=== PATIENT | male | born 1960 | race Caucasian/White ===

== ENCOUNTER 2022-09-18 11:57 | Observation (INO) ==
[2022-09-18] MEDS ORDERED: SODIUM CHLORIDE 0.9% 500 ML IV STA (11:59)
--- NOTE | 2022-09-18 12:12 | Emergency Department Note ---
Impression & Plan DKA (diabetic ketoacidosis) ADMIT ED Provider Note HPI: The patient is a 62-year-old male who presents emergency department chief complaint of hyperglycemia on his outpatient lab work today. Patient states he is currently homeless and living in the homeless retirement out of the cold. He states he has been there for about a year. Patient states that he stopped taking all of his medications several weeks ago because he was concerned that they might be tripping a positive screen on his urine drug test that he is taking because he is currently on probation. This included his metformin that he was on for type 2 diabetes. Patient denies any recent vomiting. He states over the past several days he has developed a diffuse maculopapular rash, worst on his back and in his groin. ROS: - Per HPI *Outpatient medications and allergy history reviewed. *Pertinent external medical records reviewed. PE: General: Alert HEENT: Normocephalic, trachea midline Eyes: Extraocular eye movement is intact, no scleral erythema Pulmonary: Clear to auscultation bilaterally, no wheezing Cardio: Regular rate and rhythm GI: Abdomen is soft to palpation : No suprapubic tenderness MSK: No evidence of trauma or malformation of the extremities, no edema Skin: There is a papular appearing rash to the lower back, buttocks, and bilateral lower extremities to a lesser degree without surrounding erythema, no vesicle formation, no blister formation or skin peeling is noted Neuro: Alert, no focal deficits Psychiatric: Cooperative night monitor: (As interpreted by myself): - An order was placed for continuous cardiac monitoring - Patient was noted to be in sinus rhythm with a rate of 75 EKG: (As interpreted by myself): Rate: 81 Rhythm: Normal sinus rhythm Intervals: Within normal limits ST changes: No ST elevation Time: 1247 Interventions provided in ED: -IV fluid bolus, IV insulin drip Differential Diagnosis: Diabetic ketoacidosis, HHNK, cellulitis, fungal infection/rash, bedbugs, eruptive xanthomatosis, amongst other potential pathologies. Medical Decision Making: The patient is a 62-year-old gentleman who presented to the emergency department with high blood sugar noted on his outpatient lab work today. On arrival here to the ED the patient appears in no acute distress, he is hemodynamically stable, does admit to not taking any of his medications over the past several weeks secondary to concerns about drug testing through his probation program. IVs established lab work obtained, patient was maintained on monitoring and evaluation advisor, lab work does show evidence of DKA, serum bicarbonate level is reduced at 13, glucose is elevated 466, patient has a slight anion gap. CBC does not show any evidence of leukocytosis, hemoglobin is stable at 13.9, platelet count is within normal limits at 229. Urinalysis was obtained and shows evidence of ketonuria without infection. Regards to the patient's rash, I did contact his PCP today, Yusef Chirinos, case was discussed and the patient did have a biopsy done earlier today in the resident clinic of one of the papules on his lower back. Dr. Chirinos recommended Lipid panel be obtained as patient is currently under consideration for eruptive xanthomatosis as the possible source of his rash. Lipid panel was ordered and the sample was too lipophilic to run, therefore I think this is a possibility. Patient otherwise appears nontoxic and is afebrile. Rash does not appear consistent with parasitic infection or bedbugs. Patient has no leukocytosis, I do not feel that this is an infectious rash at this time. I discussed all of the above findings with the patient, he is in agreement for admission, potassium is within normal limits and therefore insulin drip without bolus was ordered. Case was discussed with the on-call hospitalist, Dr. Lara, and the patient was placed for admission in stable condition peer Consultants: -Hospitalist, Dr. Lara -PCP, Dr. Chirinos Disposition discussion held by myself with: Patient * CRITICAL CARE TIME: ( 50 ) minutes -Stabilization of DKA requiring IV fluid resuscitation and initiation of insulin drip, time spent at the bedside, discussion with other healthcare providers and arrangement of admission Diagnosis: 1. Diabetic ketoacidosis, acute 2. Papular rash, acute, nonspecific 3. Ketonuria, acute 4. Noncompliance with prescription medications Disposition: Admission Pedro Pablo Mcdowell DO Emergency Medicine Past Med/Surg History Medical History H/O: HTN (hypertension) HLD (hyperlipidemia) Surgical History No pertinent past surgical history Social History Smoking Status: Current every day smoker Tobacco Type: Cigarettes Hx Alcohol Use: No Hx Substance Use: Yes Preferred Language: Faroese Feels Safe at Home: Yes Allergies Allergies Allergy/AdvReac Type Severity Reaction Status Date / Time N Allergy Unknown Uncoded 05/29/02 14:49 NONE Allergy Unknown Uncoded 05/29/02 14:49 SULFA Allergy Unknown Uncoded 05/29/02 14:49 Home Meds Home Medications Medication Instructions Recorded Confirmed None (Patient States No Home Meds) ##0 05/27/08 atorvastatin 40 mg tablet 40 mg PO UNKNOWN 12/13/21 12/13/21 budesonide-formoterol HFA 80 80 inh inhalation UNKNOWN 12/13/21 12/13/21 mcg-4.5 mcg/actuation aerosol inhaler (Symbicort) buspirone 10 mg tablet 10 mg PO UNKNOWN 12/13/21 12/13/21 lisinopril 10 mg tablet 10 mg PO UNKNOWN 12/13/21 12/13/21 Previous Rx's Medication Instructions Recorded OXYCODONE/ACETAMINOPHEN 5MG/325MG 1 - 2 tabs PO Q4-6HR PRN ##15 05/27/08 (PERCOCET 5MG/325MG) lidocaine 5 % topical patch 1 patch topical DAILY PRN pain #15 02/14/22 ea Results & Data (ED) Vital Signs Vital Signs - 24 hr 09/18/22 12:02 09/18/22 12:57 09/18/22 14:02 Temperature 36.4 C L Temperature Source Temporal Artery Scan Pulse Rate 91 H Pulse Rate [Apical] 73 Respiratory Rate 18 16 Respiratory Effort / Characteristics Non-Labored Respiratory Depth Normal Blood Pressure 127/78 Blood Pressure [Left Arm] 120/74 Blood Pressure Mean 94 Blood Pressure Mean [Left Arm] 89 Blood Pressure Position Sitting Pulse Oximetry 95 97 Oxygen Delivery Method Room Air Room Air Room Air Sepsis Recent Fever Within 48 Hours No Sepsis New/Unexplained Change in Mental Status No Sepsis Action Taken by Nursing No Action Required 09/18/22 14:08 Temperature Temperature Source Pulse Rate 72 Pulse Rate [Apical] Respiratory Rate Respiratory Effort / Characteristics Respiratory Depth Blood Pressure Blood Pressure [Left Arm] Blood Pressure Mean Blood Pressure Mean [Left Arm] Blood Pressure Position Pulse Oximetry Oxygen Delivery Method Sepsis Recent Fever Within 48 Hours Sepsis New/Unexplained Change in Mental Status Sepsis Action Taken by Nursing Laboratory Data 09/18/22 13:03 09/18/22 13:03 Lab Results 09/18/22 09/18/22 09/18/22 Range/Units 13:01 13:03 13:03 WBC 8.66 (4.8-10.8) K/ul RBC 4.58 L (4.70-6.10) M/uL Hgb 13.9 L (14.0-18.0) g/dl Hct 39.5 L (42.0-52.0) % MCV 86.2 (80.0-100.0) fL MCH 32.6 (25.0-34.0) pg MCHC 37.6 H (32.0-36.0) g/dL RDW Std Deviation 39.8 (36.4-46.3) fL RDW Coeff of Tamera 12.8 (11.5-14.5) % Plt Count 229 (130-400) K/uL MPV 11.2 (9.4-12.4) fL Immature Gran % (Auto) 0.6 % Neut % (Auto) 64.5 % Lymph % (Auto) 27.7 % [place] % (Auto) 5.2 % Eos % (Auto) 1.4 % Baso % (Auto) 0.6 % Neut # (Auto) 5.59 (1.40-6.50) K/uL Lymph # (Auto) 2.40 (1.2-3.4) K/uL [place] # (Auto) 0.45 (0.11-0.59) K/uL Eos # (Auto) 0.12 (0-0.50) K/uL Baso # (Auto) 0.05 (0-0.2) K/uL Immature Gran # (Auto) 0.05 (0.01-0.20) K/uL PT 9.7 (9.0-12.0) Seconds INR 0.9 (0.9-1.1) VBG pH (7.36-7.41) VBG pCO2 (38-50) mmHg VBG pO2 mmHg VBG HCO3 mmol/L VBG O2 Saturation % VBG Base Excess mEq/L Sodium (136-145) mmol/L Potassium (3.5-5.1) mmol/L Chloride (98-107) mmol/L Carbon Dioxide (21-32) mmol/L Anion Gap (3-11) BUN (6-23) mg/dl Creatinine (0.6-1.4) mg/dl Est Cr Clr Drug Dosing ml/min Est GFR ( Amer) ml/min Est GFR (Non-Af Amer) ml/min BUN/Creatinine Ratio Glucose (70-99(Fasting)) mg/dl POC Glucose 508 H* (70-99) mg/dl Calcium (8.6-10.3) mg/dl Total Bilirubin (0.2-1.0) mg/dl AST (13-39) U/L ALT (7-52) U/L Alkaline Phosphatase (34-104) U/L Troponin I High Sens (0-20) pg/ml Albumin (3.4-5.0) gm/dl Globulin Albumin/Globulin Ratio Triglycerides Cholesterol LDL Cholesterol, Calc VLDL Cholesterol, Calc HDL Cholesterol Cholesterol/HDL Ratio Lipase (11-82) U/L 09/18/22 09/18/22 09/18/22 Range/Units 13:03 13:03 13:03 WBC (4.8-10.8) K/ul RBC (4.70-6.10) M/uL Hgb (14.0-18.0) g/dl Hct (42.0-52.0) % MCV (80.0-100.0) fL MCH (25.0-34.0) pg MCHC (32.0-36.0) g/dL RDW Std Deviation (36.4-46.3) fL RDW Coeff of [place] (11.5-14.5) % Plt Count (130-400) K/uL MPV (9.4-12.4) fL Immature Gran % (Auto) % Neut % (Auto) % Lymph % (Auto) % [place] % (Auto) % Eos % (Auto) % Baso % (Auto) % Neut # (Auto) (1.40-6.50) K/uL Lymph # (Auto) (1.2-3.4) K/uL [place] # (Auto) (0.11-0.59) K/uL Eos # (Auto) (0-0.50) K/uL Baso # (Auto) (0-0.2) K/uL Immature Gran # (Auto) (0.01-0.20) K/uL PT (9.0-12.0) Seconds INR (0.9-1.1) VBG pH 7.39 (7.36-7.41) VBG pCO2 37 L (38-50) mmHg VBG pO2 53 mmHg VBG HCO3 22 mmol/L VBG O2 Saturation 90.1 % VBG Base Excess -2.2 mEq/L Sodium 129 L (136-145) mmol/L Potassium 4.0 (3.5-5.1) mmol/L Chloride 97 L (98-107) mmol/L Carbon Dioxide 13 L (21-32) mmol/L Anion Gap 12 H (3-11) BUN 16 (6-23) mg/dl Creatinine 0.26 L D (0.6-1.4) mg/dl Est Cr Clr Drug Dosing 363.7 ml/min Est GFR ( Amer) > 150.0 ml/min Est GFR (Non-Af Amer) > 150.0 ml/min BUN/Creatinine Ratio TNP Glucose 466 H* (70-99(Fasting)) mg/dl POC Glucose (70-99) mg/dl Calcium 9.4 (8.6-10.3) mg/dl Total Bilirubin 0.5 (0.2-1.0) mg/dl AST < 3 L (13-39) U/L ALT 18 (7-52) U/L Alkaline Phosphatase 138 H (34-104) U/L Troponin I High Sens 6.4 (0-20) pg/ml Albumin 3.9 (3.4-5.0) gm/dl Globulin TNP Albumin/Globulin Ratio TNP Triglycerides TNP Cholesterol TNP LDL Cholesterol, Calc TNP VLDL Cholesterol, Calc TNP HDL Cholesterol TNP Cholesterol/HDL Ratio TNP Lipase 55 (11-82) U/L Administered Medications Discontinued Medications Sodium Chloride (Nss) 500 mls @ 999 mls/hr IV .Q31M STA Stop: 09/18/22 12:29 Last Infusion: 09/18/22 14:54 Dose: 0 mls/hr Documented By: Admin: 09/18/22 13:59 Dose: 999 mls/hr Documented By: ML Discharge Plan Visit Data Chief Complaint: Hyperglycemia Stated Complaint: HYPERGLYCEMIC, BLOOD GLUCOSE 600 ED Provider: Pedro Pablo Mcdowell Discharge Problem: DKA (diabetic ketoacidosis) Forms Stand Alone Forms: My [facility] Prescriptions Prescriptions: No Action None (Patient States No Home Meds) . Qty: 0 OXYCODONE/ACETAMINOPHEN 5MG/325MG (PERCOCET 5MG/325MG) tablet 1 - 2 tabs PO Q4-6HR PRN Qty: 15 0RF Rx Instructions: PAIN atorvastatin 40 mg tablet 40 mg PO UNKNOWN buspirone 10 mg tablet 10 mg PO UNKNOWN lisinopril 10 mg tablet 10 mg PO UNKNOWN budesonide-formoterol [Symbicort] 80-4.5 mcg/actuation HFA aerosol inhaler 80 inh INHALATION UNKNOWN lidocaine 5 % adhesive patch,medicated 1 patch TOP DAILY PRN (Reason: pain) Qty: 15 0RF Rx Instructions: leave on most painful area for 12 hrs Referrals Referrals: Yusef Chirinos DO [Primary Care Provider] -
[2022-09-18 13:40] LABS: Base Excess VBG -2.2 mEq/L; HCO3 VBG 22 mmol/L; Oxygen Saturation VBG 90.1 %; PCO2 VBG 37 mmHg (38-50); PO2 VBG 53 mmHg; pH VBG 7.39 (7.36-7.41)
[2022-09-18 14:13] LABS: INR 0.9 (0.9-1.1); Prothrombin Time 9.7 Seconds (9.0-12.0)
[2022-09-18 14:47] LABS: Alanine Aminotransferase 18 U/L (7-52); Albumin Level 3.9 gm/dl (3.4-5.0); Alkaline Phosphatase 138 U/L (34-104); Anion Gap 12 (3-11); Aspartate Aminotransferase < 3 U/L (13-39); Bilirubin,Total 0.5 mg/dl (0.2-1.0); Blood Urea Nitrogen 16 mg/dl (6-23); Calcium 9.4 mg/dl (8.6-10.3); Chloride 97 mmol/L (98-107); Glucose 466 mg/dl (70-99(Fasting)); Lipase 55 U/L (11-82); Sodium 129 mmol/L (136-145); Troponin I High Sensitivity 6.4 pg/ml (0-20)
[2022-09-18 14:50] LABS: Hematocrit (blood only) 39.5 % (42.0-52.0); Hemoglobin 13.9 g/dl (14.0-18.0); Mean Corpuscular Hemoglobin 32.6 pg (25.0-34.0); Mean Corpuscular Hgb Conc 37.6 g/dL (32.0-36.0); Mean Corpuscular Volume 86.2 fL (80.0-100.0); Mean Platelet Volume 11.2 fL (9.4-12.4); Platelet Count 229 K/uL (130-400); RDW Coefficient of Variation 12.8 % (11.5-14.5); RDW Standard Deviation 39.8 fL (36.4-46.3); Red Blood Count 4.58 M/uL (4.70-6.10); White Blood Count 8.66 K/ul (4.8-10.8)
[2022-09-18] MEDS ORDERED: DEXTROSE 50% 50 ML SYRINGE IV PRN (14:54)
[2022-09-18] MEDS ORDERED: STAT INSULIN DRIP STA (14:54)
[2022-09-18] MEDS ORDERED: GLUCAGON FOR INJ 1 MG VIAL SQ PRN (14:54)
[2022-09-18] MEDS ORDERED: GLUCOSE 40% GEL 15 GM TUBE PO PRN (14:54)
[2022-09-18] MEDS ORDERED: CARBOHYDRATES FOR HYPOGLYCEMIA PO PRN (14:54)
[2022-09-18] MEDS ORDERED: GLUCOSE 10 TAB/TUBE PO PRN (14:54)
[2022-09-18 14:57] LABS: Creatinine Clr Calc Pharmacy 363.7 ml/min; Est GFR (African American) > 150.0 ml/min; Est GFR (Non-African American) > 150.0 ml/min
[2022-09-18 14:58] LABS: Carbon Dioxide 13 mmol/L (21-32)
[2022-09-18] MEDS ORDERED: INSULIN REGULAR 250 UNITS in SODIUM CHLORIDE 0.9% 247.5 ML IV SCH (15:00)
[2022-09-18 15:17] LABS: Basophils # (auto) 0.05 K/uL (0-0.2); Basophils % (auto) 0.6 %; Eosinophils # (auto) 0.12 K/uL (0-0.50); Eosinophils % (auto) 1.4 %; Immature Granulocytes # (auto) 0.05 K/uL (0.01-0.20); Immature Granulocytes % (auto) 0.6 %; Lymphocytes % (auto) 27.7 %; Monocytes # (auto) 0.45 K/uL (0.11-0.59); Monocytes % (auto) 5.2 %; Neutrophils # (auto) 5.59 K/uL (1.40-6.50); Neutrophils % (auto) 64.5 %
[2022-09-18 15:23] LABS: Appearance Urine Clear (Clear); Bilirubin Urine Negative (Negative); Blood Urine Negative (Negative); Color Urine Yellow; Glucose Urine UA 3+ (Negative); Ketones Urine 3+ (Negative); Leukocyte Esterase Urine Negative (Negative); Nitrite Urine Negative (Negative); Protein Urine Negative (Negative); Urobilinogen Urine Negative (Negative)
--- NOTE | 2022-09-18 15:56 | History & Physical Report ---
Date of Service September 18, 2022 Assessment & Plan (1) Hyperglycemia: Plan: 62 y/o M w/ PmHx anxiety, tobacco use disorder at 1 pack per day, COPD, HLD, HTN, prediabetes, illiteracy admitted for hyperglycemia with anion gap. Hyperglycemia: -Glucose this AM 550, anion gap 19. -Repeat glucose in ED 466, AG 12. -Na 128 however 135-138 when corrected for glucose. -Cannot find record of A1c in [facility], will obtain A1c in the AM. -Started on insulin drip in the ED along with 1L NSS bolus. -Will place on plasmalyte 250ml/hr due to dehydrated state. -Anion gap closed at 12, patient hungry and without nausea, will place on clear liquid diet. -Can transition in AM. -Follow up BMP at 10PM, followed by AM BMP. -Replete electrolytes as needed. Full body rash eruption/hyperlipidemia: -Present past few weeks, biopsy taken today in clinic. -Lipid profile ordered could not be read due to too many lipids. -Non irritating, no sexual contacts recently, HCV and HIV still pending. 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 IV insulin will help with hyperlipidemia. -Will replete fluids and obtain repeat lipid profile in the morning. -Continue home atorvastatin 40mg for now if patient will allow, can increase tomorrow if able to get read. HTN: -Continue home irbesartan if patient will allow. COPD: -Continue home albuterol and symbicort. Tobacco user: -1ppd at baseline use. -Will put on for nicotine patch 21mg daily. Anxiety: -Continue home buspirone and bupropion. F/E/N/GI: Clear liquid, T2DM carb consistent. DVT Prophylaxis: SCDs knee. Code status: Full code. Dispo: PCU. (2) Hypertension: (3) COPD (chronic obstructive pulmonary disease): (4) Tobacco use disorder: (5) Anxiety: History of Present Illness Chief Complaint: Hyperglycemia Primary Care Provider: DO Farhat Crain is a 62 year old male with PmHx anxiety, tobacco use disorder at 1 pack per day, COPD, HLD, HTN, prediabetes, illiteracy coming in for elevated blood glucose on lab earlier today. Patient states that over the past 3 weeks he developed a papular rash across his whole body. He was seen in the [facility] clinic on 09/14 for the rash and was given 7 days of doxycycline. He states he stopped taking all his medications 3 weeks ago due to concern for false positives showing up on urine drug screen for parol. Dr. Chirinos had gone over with him the importance of taking medications for his chronic conditions in the clinic settings to no avail. He was seen again in the clinic this morning by Dr. Brar for a biopsy of one of his lesions. He states he had blood work ordered that showed a high glucose and was told to come to the ED for management. He denies any nausea, vomiting, fevers, chills, shortness of breath, chest pain, diarrhea, constipation. He endorses having increased thirst and increased urination, urinating 10x per day and 2-4x per night. He also endorses increased fatigue and generalized weakness. Initial blood work showed unremarkable CBC, Glucose 550, Na 128, K 4.6, AG 19. Repeat in the ED showed Na 129, K 4.0, AG 12, Creat 0.26, glucose 466, lipid panel unable to read due to too many lipids, lipase 55, U/A Ketones and glucose, covid negative. Allergies Allergy/AdvReac Type Severity Reaction Status Date / Time Sulfa (Sulfonamide Allergy Severe Anaphylaxis Verified 09/18/22 15:48 Antibiotics) Home Medications Medication Instructions Recorded Confirmed Type atorvastatin 40 mg tablet 40 mg PO DAILY 12/13/21 09/18/22 History budesonide-formoterol HFA 80 80 inh inhalation DIRECTED 12/13/21 09/18/22 History mcg-4.5 mcg/actuation aerosol inhaler (Symbicort) buspirone 10 mg tablet 10 mg PO BID 12/13/21 09/18/22 History lisinopril 10 mg tablet 10 mg PO DAILY 12/13/21 09/18/22 History albuterol sulfate 90 mcg/actuation 1 - 2 puff inhalation DIRECTED 09/18/22 09/18/22 History aerosol inhaler PRN Shortness Of Breath Or Wheezing bupropion HCl 150 mg 24 hr tablet, 150 mg PO DAILY 09/18/22 09/18/22 History extended release diphenhydramine HCl 25 mg capsule 25 mg PO DIRECTED PRN Itching 09/18/22 09/18/22 History (Benadryl) doxycycline hyclate 100 mg tablet 100 mg PO BID 09/18/22 09/18/22 History irbesartan 75 mg tablet 75 mg PO DAILY 09/18/22 09/18/22 History Past Med/Surg History Medical History H/O: HTN (hypertension) HLD (hyperlipidemia) Surgical History No pertinent past surgical history Social History Smoking Status: Current every day smoker Tobacco Type: Cigarettes Cigarettes Per Day: 1 pack; Second Hand Exposure: Yes; Do You Dip or Chew Tobacco: No; Tobacco Cessation Education Requested by Patient: No Hx Alcohol Use: No Hx Substance Use: Yes (has a marijuana card) Last Used Substance: Unknown Preferred Language: Bahamian Communication Ability: Effective Communication Ability Comment: pt has hx of illiteracy and states he can only read and write a little [employer] Work[employer] Required: No Beliefs That Will Affect Care: None Current Living Situation: Other Current Living Situation Comment: Out of the cold x1.5 years Other Information That Helps Us Care for You: No Feels Safe at Home: No Is there a partner from a previous relationship who is making you feel unsafe now?: No Any Concerns about Your Family Situation: No Would You Like to Speak to Someone About Your Situation: No (pt does not feel safe, states he is an adult and doesnt want to talk 2 rep) Assistive Devices: None Review of Systems Review of Systems: As per HPI. Physical Exam Constitutional: WD/WN, vitals as above Not in any acute distress. Eyes: PERRL, conjunctivae normal, anicteric sclerae Respiratory: normal respiratory effort, lungs clear to auscultation Cardiovascular: RRR, no murmur, no edema Gastrointestinal (Abdomen): normal bowel sounds, soft, nontender, no hepat osplenomegaly Skin: Scattered purpura across patient's legs, groin, buttocks, torso, back, upper extremities, face. Most pronounced across patient's buttocks and below. Psychiatric: A+Ox3, euthymic affect Results & Data Results & Data Vital Signs (Past 12 Hours) Vital Signs Temp Pulse Pulse Resp BP BP Pulse Ox 09/18/22 14:08 72 09/18/22 14:02 73 16 120/74 97 09/18/22 12:57 09/18/22 12:02 36.4 C L 91 H 18 127/78 95 O2 Del Method 09/18/22 14:08 09/18/22 14:02 Room Air 09/18/22 12:57 Room Air 09/18/22 12:02 Room Air Supervising Physician Co-Signing Physician Notes I personally examined the patient and verified all barclay points of history and exam, discussed case, and agree with decision making with Dr Juan Sotomayor. Sugars high. Stopped meds a few weeks ago because he was worried about how they may interface with a drug test. Vitals noted, in general he is awake and alert pleasant no distress. HEENT normocephalic atraumatic mucous membranes moist. 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 CBC, basic metabolic panel noted. Lipids not able to be run due to lipemia. Hyperglycemic dehydration/uncontrolled diabetesfluids, insulin, education, time. 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 Otherwise as above Resident Activity Tracking Resident Involvement: Resident Care Provided Care Provided: Adult Hospital Medicine
--- NOTE | 2022-09-18 17:16 | Billing Data ---
Date of Service September 18, 2022 Coding Level of Care Code 76887 INT INP/OBS CARE
[2022-09-18] MEDS ORDERED: LACTATED RINGER'S 1,000 ML IV ONE (17:28)
[2022-09-18] MEDS ORDERED: NICOTINE 21 MG/24 HR TDSY TD ONE (18:02)
[2022-09-18] MEDS ORDERED: ONDANSETRON INJ 2 MG/ML 2 ML VIAL IV PRN (19:48)
[2022-09-18] MEDS ORDERED: PHARMACY GLYCEMIC MGMT CONSULT PRN (19:48)
[2022-09-18] MEDS ORDERED: diphenhydrAMINE Capsule 25 MG CAP PO PRN (19:48)
[2022-09-18] MEDS ORDERED: HHS GOAL RANGE 250-350 mg/dl ONE (19:48)
[2022-09-18] MEDS ORDERED: ALBUTEROL HFA 8 GM INHALER INH PRN (19:48)
[2022-09-18] MEDS ORDERED: ACETAMINOPHEN 325 MG TAB PO PRN (19:48)
[2022-09-18] MEDS: NICOTINE 21 MG/24 HR TDSY TD SCH (20:37)
[2022-09-18] MEDS: busPIRone 5 MG TAB PO SCH (20:37)
[2022-09-18] MEDS: INSULIN ASPART PER UNIT CHARGE SC SCH ×2 (21:00→22:05)
[2022-09-18] MEDS: DOXYCYCLINE HYCLATE 100 MG CAP PO SCH (21:01)
[2022-09-18] MEDS: FLUTICASONE/VILANTEROL 100/25MCG 14 PUFFS/INHALER INH SCH (21:02)
[2022-09-18] MEDS: PLASMA-LYTE A 1,000 ML IV SCH (21:25)
[2022-09-18 23:55] LABS: BUN Creatinine Ratio 16.9 (10-20); Calcium 8.5 mg/dl (8.6-10.3); Creatinine Clr Calc Pharmacy 145.5 ml/min; Est GFR (African American) 122.6 ml/min; Est GFR (Non-African American) 105.7 ml/min; Magnesium 1.8 mg/dl (1.7-2.4); Potassium 3.2 mmol/L (3.5-5.1)
[2022-09-19] MEDS ORDERED: LANTUS PER UNIT CHARGE SC STA (00:28)
[2022-09-19] MEDS: POTASSIUM CHLORIDE CRTAB 20 MEQ TABCR PO SCH ×2 (00:37→06:16)
[2022-09-19] MEDS: PLASMA-LYTE A 1,000 ML IV SCH (01:09)
[2022-09-19] MEDS: INSULIN ASPART PER UNIT CHARGE SC SCH ×5 (02:06→20:11)
--- NOTE | 2022-09-19 08:51 | Medical Student Progress Note ---
Date of Service September 19, 2022 Assessment & Plan (1) Hyperglycemia: Plan: DKA / Hyperglycemia - improving - Reports he was diagnosed with T2DM 2y ago when weighed 310 lbs, currently 220 lbs. - Abruptly stopped all his medications three weeks ago; see H&P for full background information - On arrival, reported increased fatigue, generalized weakness, dry mouth, increased thirst and increased urination (urinating 10x during the day and 2-4x per night). - Attempted to improve fatigue and weakness by eating candy - Labs: - UA: ketonuria w/o infection - glucose 550 yesterday morning, repeat yesterday afternoon 466, yesterday evening 205. - anion gap 19 yesterday morning, repeat yesterday afternoon 12, yesterday evening 10. - Na: 128 on arrival to ED (135-138 when corrected for glucose), repeat in ED 129, 136 today. - A1C: cannot find record of A1c in [facility]. A1c ordered, not performed. Patient's blood is lipemic. - Serum bicarbonate 13 in ED - Hemoglobin stable in ED at 13.9. Platelet count wnl 229 - Diet: clear liquids, transitioned this morning. - In ED, started on insulin drip and 1L NSS bolus, electrolytes repleted, plasmalyte 250ml/hr due to dehydrated state. - Patient engaged with extensive diabetes education, including discussion of how to choose among food options, within the limited choices he has. - Continue BSG checks, ISS, hypoglycemic protocol - 09/19/22: administered an additional LR 500mL bolus (x1) Acute papular, full body rash eruption/hyperlipidemia - monitoring -Began 3 weeks ago - yesterday saw Dr. Brar in resident clinic, had biopsy on lower back papule taken - seen 14 September 2022 for rash, Rx 7d doxy -Lipid profile ordered could not be read due to too many lipids. -Non irritating, no sexual contacts recently, HCV and HIV still pending. 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 IV insulin will help with hyperlipidemia. -Will replete fluids and obtain repeat lipid profile in the morning. -Continue home atorvastatin 40mg for now if patient will allow, can increase tomorrow if able to get read. Hypokalemia - monitoring - 09/19: overnight, K fell to 3.2 (from 4.0); KCl 20mEq (x1) ordered, recheck BMP in AM HTN - monitoring - In ED, - continuous cardiac monitoring: sinus rhythm, rate of 75 - EKG: normal sinus rhythm, rate 81, no ST elevation - Continue home irbesartan if patient will allow. COPD - monitoring - Continue home albuterol and symbicort. Tobacco user - chronic - 1ppd at baseline use. - Will put on for nicotine patch 21mg daily. Anxiety - chronic - Continue home buspirone and bupropion. Ketonuria Social Context - Patient has low literacy - Patient resides at [facility] ([facility]) for the past 1.5 years - Patient is on parole, very concerned about urine drug testing - Patient stopped taking all prescription medications 3 weeks ago - PCP: Dr. Yusef Chirinos F/E/N/GI: T2DM carb consistent diet DVT Prophylaxis: SCDs knee. Code status: Full code. Dispo: PCU. (2) Hypertension: (3) COPD (chronic obstructive pulmonary disease): (4) Tobacco use disorder: (5) Anxiety: Admission and Anticipated Discharge Date Admission Date: September 18, 2022 Supervising Attestation I personally examined the patient and verified all barclay points of history and exam, discussed case, and agree with decision making with Jeanie HUSSEIN Feeling better, still somewhat washed out. Discussed diabetes, discussed lifestyle, discussed postprandial glucose monitoring, discussed medications. He expresses a very good understanding of all of the above. In terms of his life situation, he notes that he has not really have anyone right nowhis Sister Dede is probably his closest contactbut he has not talked her in about 2 years. He notes he previously had a lot of substance abuse problems and had alienated himself, but he has been overall clean for several years. Notes last time he talked to his sister the conversation went well, it is just that he does not know how to find her other than that she lives in [place]. Notes that in an i deal world he would become a drug abuse counselor to try to help people who have gotten into similar situations that he used to be in. Notes diet choices are somewhat difficult due to his options living and out of the cold. Vitals noted, in general he is awake and alert pleasant no distress. HEENT normocephalic atraumatic mucous membranes moist. Breathing unlabored no accessory muscle use good effort. Skin shows no rashes no pallor or icterus. Neuro without focal deficits. CBC, BMP, lipids noted. Uncontrolled type 2 diabetes/hyperglycemic dehydrationimproving nicelycontinue fluids for now, continue insulinssugars improving nicely. Continue to educate. We will work on continuous glucose monitor, and at least give prescription for fingersticks for now. He expresses a really good understanding of the critical role of diet and exerciseunfortunately a lot more hurdles than the average person given his living circumstances, but he expresses a good understanding and a willingness to do what he can. Adjust meds as he gets closer to dischargetrying to keep the regimen as simple as possible but still attaining good control Hypertriglyceridemiathis, +/- cholesterol is likely the etiology for his cutaneous xanthomasstart Tricor. Likely resume his statin shortly. Otherwise as above Subjective Lee Hickman is a 62 y/o with a PMHx of T2DM, anxiety, COPD, HLD, HTN, and 39 year pack history, who presented to the ED yesterday with hyperglycemia with anion gap. ED course included IV fluid bolus, and IV insulin drip. Patient seen at bedside this morning, and in afternoon by Inpatient team. Patient reports feeling better this morning. Patient denies CP, SOB, and reports his back pain has resolved. Muscle aches have improved. No other complaints at this time. Review of Systems Review of Systems: See HPI Physical Exam Physical Exam: General: Alert HEENT: Normocephalic, trachea midline Eyes: Extraocular eye movement is intact, no scleral erythema Pulmonary: Clear to auscultation bilaterally, no wheezing Cardio: Regular rate and rhythm GI: Abdomen is soft to palpation : No suprapubic tenderness MSK: No evidence of trauma or malformation of the extremities, no edema Skin: Papular rash to the lower back, buttocks, and bilateral lower extremities to a lesser degree without surrounding erythema, no vesicle formation, no bli ster formation or skin peeling is noted Neuro: Alert, no focal deficits Psychiatric: Cooperative Constitutional: WD/WN, vitals as above Eyes: PERRL, conjunctivae normal, anicteric sclerae Respiratory: normal respiratory effort, lungs clear to auscultation Cardiovascular: RRR, no murmur, no edema Gastrointestinal (Abdomen): normal bowel sounds, soft, nontender, no hepatosplenomegaly Psychiatric: A+Ox3, euthymic affect Results & Data Vital Signs (Past 12 Hours) Vital Signs Temp Pulse Resp BP Pulse Ox O2 Del Method 09/19/22 02:59 36.6 C 63 18 106/62 94 Room Air 09/18/22 23:42 36.7 C 66 18 127/68 92 Room Air 09/18/22 20:00 Room Air
[2022-09-19] MEDS: ATORVASTATIN 40 MG TAB PO SCH (09:27)
[2022-09-19] MEDS: busPIRone 5 MG TAB PO SCH ×2 (09:27→20:07)
[2022-09-19] MEDS: buPROPion XL 150 MG TABCR PO SCH (09:27)
[2022-09-19] MEDS: LOSARTAN POTASSIUM 25 MG TAB PO SCH (09:28)
[2022-09-19] MEDS: DOXYCYCLINE HYCLATE 100 MG CAP PO SCH ×2 (09:28→20:07)
[2022-09-19] MEDS: FLUTICASONE/VILANTEROL 100/25MCG 14 PUFFS/INHALER INH SCH (09:28)
[2022-09-19 11:54] LABS: Triglycerides 7884 mg/dl (0-150)
--- NOTE | 2022-09-19 14:55 | Pharmacy Report ---
Pharmacy Glycemic Short Note 2 - Date of Service September 19, 2022 - Glycemic Short BSG Results (Last 24 hours): 09/18/22 09/18/22 09/18/22 17:32 18:44 19:31 Glucose POC Glucose 355 H* 302 H* 242 H 09/18/22 09/18/22 09/18/22 20:56 22:02 22:40 Glucose 205 H POC Glucose 358 H* 277 H 09/18/22 09/19/22 09/19/22 23:04 00:12 01:02 Glucose POC Glucose 175 H 148 H 156 H 09/19/22 09/19/22 09/19/22 02:01 07:35 11:24 Glucose POC Glucose 113 H 254 H 267 H OUTPATIENT ANTIDIABETIC REGIMEN: * n/a ASSESSMENT: * 62 year old admitted with DKA - started on insulin drip yesterday evening, however transitioned off drip overnight with Lantus 40 units * Fasting BSG elevated at 254 mg/dL - will increase basal insulin ~25% for this evening. Plan to try and keep basal insulin to once daily to help with transition on discharge. Will tighten CF/CR with lunch time check PLAN FOR INPATIENT GLYCEMIC CONTROL: * Hold outpatient oral diabetes medications * Basal insulin * Lantus 50 units HS * Bolus insulin * NovoLog per scale ACHS or Q6hrs while NPO * Goal Range: Low 110 mg/dL - High 140 mg/dL * Correction Factor: 15 mg/dL/unit * Nutritional / Prandial insulin per carb ratio of 1 unit per 5 grams CHO consumed
[2022-09-19] MEDS ORDERED: LANTUS PER UNIT CHARGE SC ONE (17:00)
[2022-09-19] MEDS ORDERED: LACTATED RINGER'S 500 ML IV ONE (18:16)
--- NOTE | 2022-09-19 19:11 | Billing Data ---
Date of Service September 19, 2022 Coding Level of Care Code 43378 SUB INP/OBS CARE MIN
[2022-09-19] MEDS: NICOTINE 21 MG/24 HR TDSY TD SCH (19:55)
[2022-09-19] MEDS: LACTATED RINGER'S 1,000 ML IV SCH ×2 (19:55→23:09)
[2022-09-19] MEDS ORDERED: POTASSIUM CHLORIDE CRTAB 20 MEQ TABCR PO ONE (21:00)
[2022-09-19] MEDS ORDERED: LANTUS PER UNIT CHARGE SC SCH (21:00)
[2022-09-20] MEDS: INSULIN ASPART PER UNIT CHARGE SC SCH ×6 (00:04→20:43)
--- NOTE | 2022-09-20 05:40 | Electrocardiogram Report ---
Test Reason : Blood Pressure : / mmHG Vent. Rate : 081 BPM Atrial Rate : 081 BPM P-R Int : 160 ms QRS Dur : 108 ms QT Int : 390 ms P-R-T Axes : 044 079 044 degrees QTc Int : 453 ms Normal sinus rhythm Incomplete right bundle branch block Borderline ECG When compared with ECG of 14-FEB-2022 10:24, Incomplete right bundle branch block has replaced Right bundle branch block Confirmed by Bo Reid [id number] on 09/20/2022 5:40:32 AM Referred By: REFERRED SELF Confirmed By:Bo Reid
[2022-09-20] MEDS: buPROPion XL 150 MG TABCR PO SCH (08:38)
[2022-09-20] MEDS: FENOFIBRATE NANOCRYSTALLIZED 145 MG TABLET PO SCH (08:38)
[2022-09-20] MEDS: LOSARTAN POTASSIUM 25 MG TAB PO SCH (08:38)
[2022-09-20] MEDS: DOXYCYCLINE HYCLATE 100 MG CAP PO SCH ×2 (08:38→21:17)
[2022-09-20] MEDS: ATORVASTATIN 40 MG TAB PO SCH (08:38)
[2022-09-20] MEDS: LACTATED RINGER'S 1,000 ML IV SCH ×2 (08:38→21:15)
[2022-09-20] MEDS: FLUTICASONE/VILANTEROL 100/25MCG 14 PUFFS/INHALER INH SCH (08:38)
[2022-09-20] MEDS: busPIRone 5 MG TAB PO SCH ×2 (08:39→21:16)
[2022-09-20 09:13] LABS: BUN Creatinine Ratio 12.7 (10-20); Calcium 8.5 mg/dl (8.6-10.3); Est GFR (African American) 124.1 ml/min; Est GFR (Non-African American) 107.1 ml/min; Phosphorus 3.5 mg/dl (2.5-4.9); Potassium 4.1 mmol/L (3.5-5.1)
[2022-09-20 11:03] LABS: Hemoglobin 13.1 g/dl (14.0-18.0); Mean Corpuscular Hemoglobin 30.7 pg (25.0-34.0); Mean Corpuscular Hgb Conc 34.9 g/dL (32.0-36.0); Mean Corpuscular Volume 87.8 fL (80.0-100.0); Mean Platelet Volume 11.2 fL (9.4-12.4); Platelet Count 211 K/uL (130-400); RDW Coefficient of Variation 13.2 % (11.5-14.5); RDW Standard Deviation 42.2 fL (36.4-46.3); Red Blood Count 4.58 M/uL (4.70-6.10); White Blood Count 7.32 K/ul (4.8-10.8)
[2022-09-20 11:15] LABS: Basophils # (auto) 0.06 K/uL (0-0.2); Basophils % (auto) 0.8 %; Eosinophils # (auto) 0.13 K/uL (0-0.50); Eosinophils % (auto) 1.8 %; Immature Granulocytes # (auto) 0.06 K/uL (0.01-0.20); Immature Granulocytes % (auto) 0.8 %; Lymphocytes # (auto) 2.07 K/uL (1.2-3.4); Lymphocytes % (auto) 28.3 %; Monocytes # (auto) 0.61 K/uL (0.11-0.59); Monocytes % (auto) 8.3 %; Neutrophils # (auto) 4.39 K/uL (1.40-6.50)
--- NOTE | 2022-09-20 12:45 | Medical Student Progress Note ---
Date of Service September 20, 2022 Assessment & Plan (1) Hyperglycemia: Plan: DKA / Hyperglycemia - improving - Reports he was diagnosed with T2DM 2y ago when weighed 310 lbs, currently 220 lbs. - Abruptly stopped all his medications in mid-August 2022; see H&P for full background information - On arrival, reported increased fatigue, generalized weakness, dry mouth, increased thirst and increased urination (urinating 10x during the day and 2-4x per night). - While off his DM medications, attempted to improve fatigue and weakness by eating candy - Labs: - UA in ED: ketonuria w/o infection - 18 September 2022 glucose: 550 am, repeat pm 466, evening 205. - 18 September 2022 anion gap: 19 am, repeat pm 12, evening 10. - Na: 128 on arrival to ED (135-138 when corrected for glucose), repeat in ED 129, 136 on 19 September 2022. - A1C: cannot find record of A1c in [facility]. A1c ordered, not performed. Patient's blood is lipemic. - Serum bicarbonate 13 in ED - Hemoglobin stable in ED at 13.9. Platelet count wnl 229 - In ED, started on insulin drip and 1L NSS bolus, electrolytes repleted, plasmalyte 250ml/hr due to dehydrated state. - 19 September 2022: Patient engaged with extensive diabetes education, including discussion of how to choose among food options, within the limited choices he has. - 19 September 2022: administered an additional LR 500mL bolus (x1) - 20 September 2022: Diet: continue carb conscious / T2DM - 20 September 2022: Stop basil bolus, keep sliding scale. - 20 September 2022: Continue BSG checks, ISS, hypoglycemic protocol - 20 September 2022: Continue diabetes education -- input from hospice educator appreciated. Of note for medication selection: patient does not have access to refrigeration and does not like needles. - 20 September 2022: Continue Metformin ER 1000 mg Hypertriglyceridemia - improving - Aim to improve with glycemic control - 20 September 2022: Continue Fenofibrate 145 mg - 20 September 2022: Add fish oil: 2 g omega 3 BID Acute papular, full body rash eruption/hyperlipidemia - monitoring -Began 3 weeks ago - yesterday saw Dr. Brar in resident clinic, had biopsy on lower back papule taken - seen 14 September 2022 for rash, Rx 7d doxy -Lipid profile ordered could not be read due to too many lipids. -Non irritating, no sexual contacts recently, HCV and HIV still pending. 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 IV insulin will help with hyperlipidemia. -Repleted fluids and obtained repeat lipid profile in the morning. - 19 September 2022: Continued home atorvastatin 40mg - 20 September 2022: increase atorvastatin to 80 mg Hypokalemia - monitoring - 09/19: overnight, K fell to 3.2 (from 4.0); KCl 20mEq (x1) ordered - 20 September 2022: K 4.1 HTN - monitoring - In ED, - continuous cardiac monitoring: sinus rhythm, rate of 75 - EKG: normal sinus rhythm, rate 81, no ST elevation - 20 September 2022: Continue home irbesartan if patient will allow. COPD - monitoring - Continue home Albuterol and Symbicort. Tobacco user - chronic - 1ppd at baseline use. - 20 September 2022: Continue nicotine patch 21mg daily. Anxiety - chronic - 20 September 2022: Continue home buspirone and bupropion. 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 Yusef Chirinos F/E/N: IV removed d/t irritation last night, eating and drinking well. No IV access needed at this time. Electrolytes repleted earlier. GI: T2DM carb consistent diet DVT Prophylaxis: ambulating, without known coagulation risk factors Code status: Full code. Dispo: PCU, pending clinical improvement and further education, planning to go to rehab discharge: anticipate to OOTC (2) Hypertension: (3) COPD (chronic obstructive pulmonary disease): (4) Tobacco use disorder: (5) Anxiety: Admission and Anticipated Discharge Date Admission Date: September 18, 2022 Supervising Attestation I personally examined the patient and verified all barclay points of history and exam, discussed case, and agree with decision making with K Varlyguina MS2 feeling weak - would like to go to inpatient rehab if possible. discussed ongoing management he expresses understanding. rash itching a lot. Vitals noted, in general he is awake and alert pleasant no distress. HEENT normocephalic atraumatic mucous membranes moist. Breathing unlabored no accessory muscle use good effort. Skin shows no rashes no pallor or icterus. Neuro without focal deficits. CBC, BMP, glucoses noted Uncontrolled type 2 diabetes/hyperglycemic dehydrationimproving nicelymetformin, start basal bolus insulin since he will be going home oncontinue sliding scale just to keep things from getting too [id number] if we underdosed with oral medications. Continue dietary changes. Outpatient office will work on continuous glucose monitor, and hospice educator gave meter for fingerstick glucoses for now. He expresses a really good understanding of the critical role of diet and exerciseunfortunately a lot more hurdles than the average person given his living circumstances, but he expresses a good understanding and a willingness to do what he can. Adjust meds as he gets closer to dischargetrying to keep the regimen as simple as possible but still attaining good control Hypertriglyceridemiathis, +/- cholesterol is likely the etiology for his cutaneous xanthomasTricor started yesterday, resume Lipitor today, add fish oil. Triamcinolone for itching, biopsy still pending. Otherwise as above Subjective Lee Hickman is a 62 y/o with a PMHx of T2DM, anxiety, COPD, HLD, HTN, and 39 year pack history, who presented to the ED on 18 September 2022 with hyperglycemia with anion gap. This morning, Lee reports feeling stronger than before. He awoke with a headache around 4 am, likely d/t nicotine withdrawal. He reports myalgia in extremities; denies CP, SOB, N/V. He is concerned about his muscle weakness, and asks if there is a class or resource available to help him regain strength. Review of Systems Review of Systems: See HPI Physical Exam Physical Exam: General: AAOx3 HEENT: Normocephalic, trachea midline, no JVD Eyes: Extraocular eye movement is intact, no scleral erythema Pulmonary: Clear to auscultation bilaterally, no wheezing Cardio: RRR GI: Abdomen is soft to palpation : No suprapubic tenderness MSK: No evidence of trauma or malformation of the extremities, no edema Skin: Papular rash on lower back, and bilateral lower extremities to a lesser degree without surrounding erythema, no vesicle formation, no blister formation or peeling skin Neuro: Alert, no focal deficits Psychiatric: Cooperative Results & Data Vital Signs (Past 12 Hours) Vital Signs Temp Pulse Resp BP Pulse Ox O2 Del Method 09/20/22 04:00 36.6 C 61 18 131/80 95 Room Air 09/20/22 00:00 36.6 C 70 18 131/84 96 Room Air
[2022-09-20] MEDS ORDERED: TRIAMCINOLONE ACET 0.025% CR 15 GM TUBE EXT PRN (17:09)
--- NOTE | 2022-09-20 17:09 | Billing Data ---
Date of Service September 20, 2022 Coding Level of Care Code 97487 SUB INP/OBS CARE MIN
[2022-09-20] MEDS ORDERED: metFORMIN HCL ER 500 MG TABCR PO SCH (17:30)
[2022-09-20] MEDS ORDERED: LANTUS PER UNIT CHARGE SC SCH (21:00)
[2022-09-20] MEDS: NICOTINE 21 MG/24 HR TDSY TD SCH (21:16)
[2022-09-20] MEDS: OMEGA-3 (PURIFIED FISH OIL) 1 GM CAP PO SCH (21:17)
[2022-09-21] MEDS: LACTATED RINGER'S 1,000 ML IV SCH ×4 (00:08→23:29)
[2022-09-21] MEDS: LOSARTAN POTASSIUM 25 MG TAB PO SCH (07:40)
[2022-09-21] MEDS: busPIRone 5 MG TAB PO SCH ×2 (07:40→20:49)
[2022-09-21] MEDS: ATORVASTATIN 40 MG TAB PO SCH (07:40)
[2022-09-21] MEDS: buPROPion XL 150 MG TABCR PO SCH (07:41)
[2022-09-21] MEDS: metFORMIN HCL ER 500 MG TABCR PO SCH (07:41)
[2022-09-21] MEDS: DOXYCYCLINE HYCLATE 100 MG CAP PO SCH (07:41)
[2022-09-21] MEDS: OMEGA-3 (PURIFIED FISH OIL) 1 GM CAP PO SCH ×2 (07:41→20:48)
[2022-09-21] MEDS: FENOFIBRATE NANOCRYSTALLIZED 145 MG TABLET PO SCH (07:41)
[2022-09-21] MEDS: FLUTICASONE/VILANTEROL 100/25MCG 14 PUFFS/INHALER INH SCH (07:42)
[2022-09-21] MEDS: INSULIN ASPART PER UNIT CHARGE SC SCH ×4 (07:43→20:55)
[2022-09-21] MEDS ORDERED: Nursing to Pharmacy Communication SCH (08:30)
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
--- NOTE | 2022-09-21 17:24 | Billing Data ---
Date of Service September 21, 2022 Coding Level of Care Code 65899 SUB INP/OBS CARE MIN
[2022-09-21] MEDS: NICOTINE 21 MG/24 HR TDSY TD SCH (20:47)
[2022-09-22] MEDS: LACTATED RINGER'S 1,000 ML IV SCH ×2 (07:28→15:30)
[2022-09-22 08:47] LABS: Calcium 8.7 mg/dl (8.6-10.3); Creatinine Clr Calc Pharmacy 129.4 ml/min; Est GFR (African American) 116.9 ml/min; Est GFR (Non-African American) 100.8 ml/min; Potassium 4.7 mmol/L (3.5-5.1)
[2022-09-22] MEDS: INSULIN ASPART PER UNIT CHARGE SC SCH ×4 (08:52→20:23)
[2022-09-22] MEDS: ATORVASTATIN 40 MG TAB PO SCH (08:55)
[2022-09-22] MEDS: ENOXAPARIN INJ 40 MG/0.4 ML SYR SQ SCH (08:55)
[2022-09-22] MEDS: LOSARTAN POTASSIUM 25 MG TAB PO SCH (08:55)
[2022-09-22] MEDS: FENOFIBRATE NANOCRYSTALLIZED 145 MG TABLET PO SCH (08:55)
[2022-09-22] MEDS: OMEGA-3 (PURIFIED FISH OIL) 1 GM CAP PO SCH ×2 (08:55→20:42)
[2022-09-22] MEDS: buPROPion XL 150 MG TABCR PO SCH (08:55)
[2022-09-22] MEDS: metFORMIN HCL ER 500 MG TABCR PO SCH (08:55)
[2022-09-22] MEDS: FLUTICASONE/VILANTEROL 100/25MCG 14 PUFFS/INHALER INH SCH (08:56)
[2022-09-22] MEDS: busPIRone 5 MG TAB PO SCH ×2 (08:56→20:42)
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
--- NOTE | 2022-09-22 17:07 | Billing Data ---
Date of Service September 22, 2022 Coding Level of Care Code 26696 SUB INP/OBS CARE MIN
[2022-09-22] MEDS: NICOTINE 21 MG/24 HR TDSY TD SCH (20:41)
[2022-09-23 06:17] LABS: Hemoglobin 14.4 g/dl (14.0-18.0); Mean Corpuscular Hemoglobin 31.1 pg (25.0-34.0); Mean Corpuscular Hgb Conc 34.3 g/dL (32.0-36.0); Mean Corpuscular Volume 90.7 fL (80.0-100.0); Mean Platelet Volume 10.5 fL (9.4-12.4); Platelet Count 175 K/uL (130-400); RDW Coefficient of Variation 13.7 % (11.5-14.5); RDW Standard Deviation 45.2 fL (36.4-46.3); Red Blood Count 4.63 M/uL (4.70-6.10); White Blood Count 6.32 K/ul (4.8-10.8)
[2022-09-23 06:58] LABS: Cholesterol 756 mg/dl (0-200); HDL Cholesterol 21 mg/dl; Triglycerides 1959 mg/dl (0-150)
[2022-09-23] MEDS: busPIRone 5 MG TAB PO SCH (07:58)
[2022-09-23] MEDS: INSULIN ASPART PER UNIT CHARGE SC SCH ×2 (07:59→12:11)
[2022-09-23] MEDS: OMEGA-3 (PURIFIED FISH OIL) 1 GM CAP PO SCH (08:00)
[2022-09-23] MEDS: LOSARTAN POTASSIUM 25 MG TAB PO SCH (08:00)
[2022-09-23] MEDS: metFORMIN HCL ER 500 MG TABCR PO SCH (08:00)
[2022-09-23] MEDS: ATORVASTATIN 40 MG TAB PO SCH (08:00)
[2022-09-23] MEDS: FENOFIBRATE NANOCRYSTALLIZED 145 MG TABLET PO SCH (08:00)
[2022-09-23] MEDS: FLUTICASONE/VILANTEROL 100/25MCG 14 PUFFS/INHALER INH SCH (08:00)
[2022-09-23] MEDS: buPROPion XL 150 MG TABCR PO SCH (08:00)
[2022-09-23] MEDS: ENOXAPARIN INJ 40 MG/0.4 ML SYR SQ SCH (08:01)
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
--- NOTE | 2022-09-23 17:57 | Billing Data ---
Date of Service September 23, 2022 Coding Level of Care Code 31892 INP/OBS DISCH >30 MIN
== END 2022-09-23 12:45 | disposition home or self-care (01) | DRG 641 ==
LOC: ED 11:57 → 2S 17:25 → INTOOBSV 17:25 → 2S 19:22